=== PATIENT | male | born 1995 | race Caucasian/White ===

== ENCOUNTER 2023-08-19 18:28 | Emergency (ER) | payer OTHER ==
[~2023-08-19] VITALS: Ht 182.9 cm; Wt 90.9 kg
[2023-08-19 18:29] VITALS: BP 123/75; TEMP 97.3; O2SAT 96
[2023-08-19] MEDS: FLUORESCEIN OPHTH 1MG STRIP OS ONE (19:08)
[2023-08-19] MEDS: TETRACAINE 0.5% OPHTH SOLN 4ML OS ONE (19:08)
[2023-08-19] MEDS ORDERED: ERYTHROMYCIN OPHTH OINT OS ONE (19:20)
[2023-08-19] MEDS ORDERED: ERYTOIN8 OP (19:23)
== END 2023-08-19 19:31 | disposition home or self-care (01) ==
LOC: M ED 18:28
DX: T15.02XA Foreign body in cornea, left eye, initial encounter (principal); Z79.2 Long term (current) use of antibiotics; Y92.009 Unspecified place in unspecified non-institutional (private) residence as the place of occurrence of the external cause; Y93.89 Activity, other specified; Y99.9 Unspecified external cause status

== ENCOUNTER → 2023-11-07 | Outpatient (REF) | payer OTHER ==
[~2023-11-07] MED LIST: ERYTOIN8 OP
[2023-11-07 13:38] LABS: SEMEN APPEARANCE OPAQUE (OPAQUE); SEMEN VISCOSITY LIQUID (LIQUID); SEMEN VOLUME 3.6 ml (2.0-5.0); SEMEN pH 8.5 (7.0-8.0)
[2023-11-07 13:39] LABS: SPERM CONCENTRATION 102.4 M/ml (>=15.0); WBC CONCENTRATION <=1 M/ml (<=1 M/ml)
== END ==
LOC: M LAB REF 13:31
PROVIDERS: ATTEND Obstetrics & Gynecology Reproductive Endocrinology
DX: Z31.41 Encounter for fertility testing (principal)